=== PATIENT | male | born 1965 ===

== ENCOUNTER 2019-04-06 12:58 | Outpatient (CLI) | payer OTHER | END 2019-04-06 12:59 | disposition home or self-care (01) | LOC: RAD 12:58 | DX: M54.5 Low back pain (principal); I10 Essential (primary) hypertension; Z01.810 Encounter for preprocedural cardiovascular examination; E03.8 Other specified hypothyroidism; E78.89 Other lipoprotein metabolism disorders; E66.8 Other obesity; M10.9 Gout, unspecified ==

== ENCOUNTER → 2020-12-26 12:20 | Outpatient (CLI) | payer OTHER | END | disposition home or self-care (01) | LOC: LAB 12:20 | PROVIDERS: ATTEND Surgery | DX: R97.20 Elevated prostate specific antigen [PSA] (principal) ==

== ENCOUNTER 2021-01-04 07:00 | Outpatient (CLI) | payer OTHER | END 2021-01-04 07:24 | disposition home or self-care (01) | LOC: SONOGRAMA 07:00 | PROVIDERS: ATTEND Surgery | DX: D29.1 Benign neoplasm of prostate (principal); R97.20 Elevated prostate specific antigen [PSA] ==